=== PATIENT | female | born 1985 | race Two or more races ===

== ENCOUNTER 2018-05-15 21:27 | Emergency (ER) | payer MEDICARE, MEDICAID ==
[~2018-05-15] VITALS: Ht 157.5 cm; Wt 61.1 kg
[~2018-05-15 21:27] MED LIST: TRAZ-129; zoloft
[2018-05-16 01:08] VITALS: BP 116/90
== END 2018-05-16 01:08 | disposition home or self-care (01) ==
LOC: ER 21:27
DX: T83.84XA Pain due to genitourinary prosthetic devices, implants and grafts, initial encounter (principal)
CPT/HCPCS: 99281